=== PATIENT | female | born 1940 | race Caucasian/White ===

== ENCOUNTER 2017-09-04 12:15 | Emergency (ER) | payer MEDICARE, BC ==
[~2017-09-04] VITALS: Ht 170.2 cm; Wt 58.0 kg
[~2017-09-04 12:15] MED LIST: [UNRECOGNIZED DRUG - OTHER]
[2017-09-04 12:22] VITALS: BP 136/64
[2017-09-04] MEDS ORDERED: LIDOCAINE-MPF 1%, 5ML INFIL ONE (13:30)
[2017-09-04] MEDS ORDERED: LIDOCAINE-MPF 1%, 5ML ONE (13:35)
== END 2017-09-04 15:47 | disposition home or self-care (01) ==
LOC: ED 15:03
DX: S82.62XA Displaced fracture of lateral malleolus of left fibula, initial encounter for closed fracture (principal); S91.312A Laceration without foreign body, left foot, initial encounter; S90.32XA Contusion of left foot, initial encounter; S50.312A Abrasion of left elbow, initial encounter; S50.812A Abrasion of left forearm, initial encounter; S40.812A Abrasion of left upper arm, initial encounter; W19.XXXA Unspecified fall, initial encounter; Y93.89 Activity, other specified; Y92.89 Other specified places as the place of occurrence of the external cause; Y99.8 Other external cause status
CPT/HCPCS: 12002; 99284